=== PATIENT | female | born 1985 | race Asian ===

== ENCOUNTER 2019-11-20 10:26 | Inpatient (IN) | payer OTHER ==
[~2019-11-20] VITALS: Ht 165.1 cm; Wt 84.1 kg
[2019-11-22] MEDS ORDERED: OXYTOCIN 30U/ 0.9% NaCL 500ML 500 ML IV ONE (08:20)
[2019-11-22] MEDS: LACTATED RINGERS 1,000 ML IV SCH ×3 (08:30→15:20)
[2019-11-22] MEDS ORDERED: FENTANYL PF 100 MCG/2ML IVPush PRN (08:30)
[2019-11-22] MEDS ORDERED: TERBUTALINE 1 MG/ML, 1ML IVPush PRN (08:30)
[2019-11-22] MEDS ORDERED: ONDANSETRON 2MG/ML, 2ML IVPush PRN (08:30)
[2019-11-22] MEDS ORDERED: FENTANYL PF 100 MCG/2ML IV PRN (08:30)
[2019-11-22] MEDS ORDERED: TERBUTALINE 1 MG/ML, 1ML SQ PRN (08:30)
[2019-11-22] MEDS ORDERED: OXYTOCIN 30U/ 0.9% NaCL 500ML 500 ML ONE ×2 (08:42→15:17)
[2019-11-22] MEDS ORDERED: LIDOCAINE 1%, 20ML ONE (08:42)
[2019-11-22] MEDS ORDERED: MISOPROSTOL 200 MCG TABLET ONE (08:42)
[2019-11-22] MEDS ORDERED: NEWBORN KIT ONE (08:42)
[2019-11-22 09:13] LABS: BASOPHILS # (AUTO) 0.03 x10^3/uL (0-0.1); BASOPHILS % (AUTO) 0 % (0-1); EOSINOPHILS # (AUTO) 0.04 x10^3/uL (0-0.4); EOSINOPHILS % (AUTO) 1 % (1-7); LYMPHOCYTES # (AUTO) 1.66 x10^3/uL (1-3.4); LYMPHOCYTES % (AUTO) 21 % (22-44); MD NO; MEAN CORPUSCULAR HEMOGLOBIN 31.1 pg (27.0-34.8); MEAN CORPUSCULAR HGB CONC 32.5 g/dL (32.4-35.8); MEAN CORPUSCULAR VOLUME 95.6 fL (80-100); MEAN PLATELET VOLUME 10.9 fL (7.4-10.4); MONOCYTES # (AUTO) 0.43 x10^3/uL (0.2-0.8); MONOCYTES % (AUTO) 5 % (2-9); NEUTROPHILS # (AUTO) 5.92 x10^3/uL (1.8-6.8); NEUTROPHILS % (AUTO) 73 % (42-75); PLATELET COUNT 119 x10^3/uL (130-400); RED BLOOD COUNT 3.81 x10^6/uL (3.82-5.3); RED CELL DISTRIBUTION WIDTH 14.6 % (9.6-15.2)
[2019-11-22] MEDS ORDERED: OXYTOCIN 30U/ 0.9% NaCL 500ML 500 ML IV PRN (09:27)
[2019-11-22] MEDS ORDERED: D5%-LACTATED RINGERS 1,000 ML IV SCH (10:09)
[2019-11-22] MEDS ORDERED: FENTANYL/BUPIV./NS/PF 250 ML EPIDCONT SCH (10:33)
[2019-11-22] MEDS ORDERED: LACTATED RINGERS 1,000 ML IV SCH (10:33)
[2019-11-22] MEDS ORDERED: BUPIVACAINE 0.25% ONE (10:36)
[2019-11-22] MEDS ORDERED: FENTANYL/BUPIV./NS/PF 250 ML EPIDCONT ONE (10:36)
[2019-11-22] MEDS ORDERED: EPHEDRINE 50 MG/ML, 1ML IVPush PRN (11:00)
[2019-11-22] MEDS ORDERED: LACTATED RINGERS 1,000 ML IVBOLUS PRN (11:00)
[2019-11-22] MEDS ORDERED: FENTANYL PF 500 MCG, BUPIVACAINE/PF 0.5%, 30ML 62.5 ML in SODIUM CHLORIDE 0.9% 177.5 ML EPIDCONT SCH (11:00)
[2019-11-22] MEDS ORDERED: NALOXONE 0.4 MG/ML, 1ML IVPush PRN (11:00)
[2019-11-22] MEDS ORDERED: SIMETHICONE 80 MG CHEW TAB PO PRN (15:00)
[2019-11-22] MEDS ORDERED: ONDANSETRON 2MG/ML, 2ML IV PRN (15:00)
[2019-11-22] MEDS ORDERED: MEASLES,MUMPS&RUBELLA VACC/PF 0.5 ML SQ-VACC PRN (15:00)
[2019-11-22] MEDS ORDERED: MISOPROSTOL 200 MCG TABLET PR PRN (15:00)
[2019-11-22] MEDS ORDERED: ACETAMINOPHEN 325 MG TABLET PO PRN (15:00)
[2019-11-22] MEDS ORDERED: OXYcodone IR 5MG TABLET PO PRN (15:00)
[2019-11-22] MEDS ORDERED: IBUPROFEN 600 MG TABLET ONE (15:17)
[2019-11-22] MEDS: OXYTOCIN 30U/ 0.9% NaCL 500ML 500 ML IV SCH ×2 (15:20→15:55)
[2019-11-22 17:00] VITALS: BP 127/83
[2019-11-22 20:40] VITALS: BP 124/78
[2019-11-22] MEDS: IBUPROFEN 800 MG TABLET PO PRN (22:03)
[2019-11-22] MEDS: DOCUSATE 100 MG CAPSULE PO PRN (22:03)
[2019-11-22 23:02] LABS: BASOPHILS # (AUTO) 0.03 x10^3/uL (0-0.1); BASOPHILS % (AUTO) 0 % (0-1); EOSINOPHILS # (AUTO) 0.03 x10^3/uL (0-0.4); EOSINOPHILS % (AUTO) 0 % (1-7); LYMPHOCYTES # (AUTO) 1.43 x10^3/uL (1-3.4); LYMPHOCYTES % (AUTO) 15 % (22-44); MD NO; MEAN CORPUSCULAR HEMOGLOBIN 32.1 pg (27.0-34.8); MEAN CORPUSCULAR HGB CONC 33.7 g/dL (32.4-35.8); MEAN CORPUSCULAR VOLUME 95.3 fL (80-100); MEAN PLATELET VOLUME 10.8 fL (7.4-10.4); MONOCYTES # (AUTO) 0.44 x10^3/uL (0.2-0.8); MONOCYTES % (AUTO) 5 % (2-9); NEUTROPHILS # (AUTO) 7.93 x10^3/uL (1.8-6.8); NEUTROPHILS % (AUTO) 80 % (42-75); PLATELET COUNT 109 x10^3/uL (130-400); RED BLOOD COUNT 3.36 x10^6/uL (3.82-5.3); RED CELL DISTRIBUTION WIDTH 15.2 % (9.6-15.2)
[2019-11-23 00:15] VITALS: BP 116/72
[2019-11-23 04:20] VITALS: BP 139/75
[2019-11-23 05:15] VITALS: BP 111/62
[2019-11-23 07:33] VITALS: BP 134/84
[2019-11-23] MEDS: IBUPROFEN 800 MG TABLET PO PRN (07:33)
[2019-11-23] MEDS: DOCUSATE 100 MG CAPSULE PO PRN (07:34)
[2019-11-23] MEDS ORDERED: PRENATAL VIT/IRON/FA 1 EACH TABLET PO SCH (09:00)
[2019-11-23] MEDS ORDERED: IBUP-1222 PO (09:30)
[2019-11-23] MEDS: LACTATED RINGERS 1,000 ML IV SCH (10:09)
[2019-11-23] MEDS: OXYTOCIN 30U/ 0.9% NaCL 500ML 500 ML IV SCH (10:58)
== END 2019-11-23 15:40 | disposition home or self-care (01) | DRG 807 ==
LOC: LDIP 11-22 08:15 → 2NW 11-22 17:07
PROVIDERS: ADMIT Student in an Organized Health Care Education/Training Program; ATTEND Student in an Organized Health Care Education/Training Program
PROC: 10E0XZZ Delivery of Products of Conception, External Approach (ICD-10-PCS; principal; 2019-11-22)
PROC: 0KQM0ZZ Repair Perineum Muscle, Open Approach (ICD-10-PCS; 2019-11-22)
PROC: 10907ZC Drainage of Amniotic Fluid, Therapeutic from Products of Conception, Via Natural or Artificial Opening (ICD-10-PCS; 2019-11-22)
PROC: 10H07YZ Insertion of Other Device into Products of Conception, Via Natural or Artificial Opening (ICD-10-PCS; 2019-11-22)
PROC: 3E0R3BZ Introduction of Anesthetic Agent into Spinal Canal, Percutaneous Approach (ICD-10-PCS; 2019-11-22)
PROC: 00HU33Z Insertion of Infusion Device into Spinal Canal, Percutaneous Approach (ICD-10-PCS; 2019-11-22)
DX: O48.0 Post-term pregnancy (principal); Z37.0 Single live birth; O70.1 Second degree perineal laceration during delivery; Z82.49 Family history of ischemic heart disease and other diseases of the circulatory system; Z83.3 Family history of diabetes mellitus; Z83.49 Family history of other endocrine, nutritional and metabolic diseases; Z20.828 Contact with and (suspected) exposure to other viral communicable diseases; Z3A.40 40 weeks gestation of pregnancy
CPT/HCPCS: 36415; 85025; 86592; 86850; 86900; 87635; G0378; J2590; J7120